=== PATIENT | male | born 1950 | race Caucasian/White ===

== ENCOUNTER 2018-09-01 08:08 | Day surgery (SDC) | payer MEDICARE, BC ==
[~2018-09-01] VITALS: Ht 167.6 cm; Wt 66.8 kg
[2018-09-01] MEDS ORDERED: MULTI VITAMINS1 TAB PO (08:22)
[2018-09-01 08:23] VITALS: BP 146/81; PULSE 54; TEMP 97.6
[2018-09-01] MEDS ORDERED: VIAGRA 25MG TAB25 MG PO (08:23)
[2018-09-01 12:55] VITALS: BP 113/71; PULSE 51; TEMP 97.6
--- NOTE | 2018-09-01 12:55 | NUR ---
PATIENT BACK FROM SURGERY. PATIENT AWAKE, TALKING TO AND NURSE. VS APPEAR STABLE. WILL GET JUICE AND PUDDING FOR PATIENT AND CONTINUE TO MONITOR.
[2018-09-01] MEDS ORDERED: NORCO 325 MG-51 TAB PO (12:56)
[2018-09-01 13:10] VITALS: BP 98/54; PULSE 52
--- NOTE | 2018-09-01 13:10 | NUR ---
PATIENT EATING PUDDING. NO COMPLAINTS OF NAUSEA OR PAIN. VS APPEAR STABLE. WILL CONTINUE TO MONITOR.
[2018-09-01 13:25] VITALS: BP 125/73; PULSE 51
--- NOTE | 2018-09-01 13:25 | NUR ---
PATIENT HAS NO COMPLAINTS. VS APPEAR STABLE. WILL GET ONE MORE SET OF VS SIGNS, THEN WILL DISCHARGE PATIENT.
[2018-09-01 13:45] VITALS: BP 118/85; PULSE 49
--- NOTE | 2018-09-01 13:45 | NUR ---
PATIENT ALERT AND ORIENTED, NO COMPLAINTS. PATIENT VS APPEAR STABLE. WILL DISCHARGE PATIENT.
== END 2018-09-01 14:02 | disposition home or self-care (01) ==
LOC: SDCO 08:08
DX: K40.90 Unilateral inguinal hernia, without obstruction or gangrene, not specified as recurrent (principal); Z79.899 Other long term (current) drug therapy; Z90.49 Acquired absence of other specified parts of digestive tract; Z80.8 Family history of malignant neoplasm of other organs or systems
CPT/HCPCS: J0690; J1885; J2704; J3010; J7120